=== PATIENT | male | born 1970 | race Caucasian/White ===

== ENCOUNTER 2021-04-05 17:12 | Emergency (ER) | payer BC ==
[2021-04-05 19:24] LABS: BUN/CREATININE RATIO 11 (0-10)
[2021-04-05] MEDS ORDERED: ATIVAN 1MG TABLE1 MG PO (21:05)
== END 2021-04-05 21:18 | disposition home or self-care (01) ==
LOC: ER1 17:12
PROVIDERS: Emergency Medicine
DX: F32.A Depression, unspecified (principal); F41.8 Other specified anxiety disorders; Z91.041 Radiographic dye allergy status
CPT/HCPCS: 80053; 82550; 82553; 83874; 84484; 96374; 99283